=== PATIENT | female | born 2000 | race Caucasian/White ===

== ENCOUNTER 2020-12-20 05:18 | Inpatient (IN) | payer OTHER ==
[~2020-12-20] VITALS: Ht 160 cm; Wt 84.8 kg
[2020-12-20 06:37] LABS: HEMOGLOBIN 11.4 gm/dl (12.3-15.3); RED BLOOD COUNT 3.65 M/UL (4.00-5.10); WHITE BLOOD COUNT 13.2 K/UL (4.5-11.0)
[2020-12-20] MEDS ORDERED: FERROUS SULFAT325 M2 PO (11:02)
[2020-12-20] MEDS ORDERED: HYDROCODON-ACE1 EAC4 PO (17:00)
[2020-12-20] MEDS ORDERED: IBUPROFEN600 MG PO (17:00)
[2020-12-20] MEDS ORDERED: DOCUSATE SODIU100 MG PO (17:00)
[2020-12-21 06:45] LABS: HEMOGLOBIN 8.1 gm/dl (12.3-15.3)
[2020-12-22] MEDS ORDERED: FERROUS SULFAT325 M2 PO (11:52)
== END 2020-12-22 16:44 | disposition home or self-care (01) | DRG 806 ==
LOC: GENOP 05:18 → OB 06:25 → GENOP 06:33 → OB 20:28
PROVIDERS: Obstetrics & Gynecology; ADMIT Obstetrics & Gynecology
PROC: 10E0XZZ Delivery of Products of Conception, External Approach (ICD-10-PCS; principal; 2020-12-20)
PROC: 3E0234Z Introduction of Serum, Toxoid and Vaccine into Muscle, Percutaneous Approach (ICD-10-PCS; 2020-12-20)
PROC: 4A1HXCZ Monitoring of Products of Conception, Cardiac Rate, External Approach (ICD-10-PCS; 2020-12-20)
DX: O99.344 Other mental disorders complicating childbirth (principal); D62 Acute posthemorrhagic anemia; Z37.0 Single live birth; Z20.822 Contact with and (suspected) exposure to COVID-19; F32.9 Major depressive disorder, single episode, unspecified; F41.9 Anxiety disorder, unspecified; Z3A.36 36 weeks gestation of pregnancy; O42.913 Preterm premature rupture of membranes, unspecified as to length of time between rupture and onset of labor, third trimester; O62.2 Other uterine inertia; O99.02 Anemia complicating childbirth; Z23 Encounter for immunization
CPT/HCPCS: 36415; 51702; 80307; 81001; 82800; 83518; 85014; 85018; 85025; 90471; 90707; J2210; J2590; J7120; U0002